=== PATIENT | male | born 1980 | race Caucasian/White ===

== ENCOUNTER 2022-07-12 10:06 | Outpatient (REF) | payer OTHER, SELFPAY ==
[2022-07-12 14:43] LABS: Cholesterol 244 mg/dL; Glucose Fasting 85 mg/dL (60-99); HDL Cholesterol 43 mg/dL; LDL Cholesterol Calculated 172 mg/dl; Triglycerides 147 mg/dL
== END 2022-07-12 10:07 | disposition home or self-care (01) ==
LOC: HO.WFDLDS 10:06
PROVIDERS: Visit Provider Family Medicine
DX: Z82.49 Family history of ischemic heart disease and other diseases of the circulatory system (principal)
CPT/HCPCS: 36415; 80061; 82947

== ENCOUNTER 2023-08-22 12:48 | Outpatient (REF) | payer OTHER, SELFPAY ==
--- NOTE | ~2023-08-22 | US_ITS ---
EXAMINATION: US THYROID CLINICAL INFORMATION: Iodine-deficiency related diffuse goiter. Rule out multinodular goiter. COMPARISON: None available. TECHNIQUE: Linear transducer rehman-scale and color Doppler examination with attention to the region of the thyroid. FINDINGS: SIZE: Measurements of the thyroid lobes and nodules are given in sagittal, anteroposterior and transverse dimensions respectively. Right Thyroid Lobe: 5.4 x 1.7 x 1.6 cm, volume 7.7 mL. Parenchyma: The gland echotexture is homogeneous. Thyroid vascularity is normal. Left Thyroid Lobe: 5.0 x 1.4 x 1.2 cm, volume 4.3 mL. Parenchyma: The gland echotexture is homogeneous. Thyroid vascularity is normal. Isthmus: 0.3 cm in maximum AP dimension. No focal thyroid nodule is seen. NODES: Left cervical 0.9 x 0.2 x 0.5 cm lymph node. US/US thyroid IMPRESSION: No suspicious thyroid nodules. Left cervical 0.9 x 0.2 x 0.5 cm lymph node. ACR TI-RADS RECOMMENDATION REFERENCE: Ultrasound-guided fine-needle aspiration, followup ultrasound, no further followup. * TR1 (0 point) and TR2 (2 points): No FNA or followup. * TR3 (3 points): FNA if more than or equal to 2.5 cm in maximum dimension, followup ultrasound in 1, 3 and 5 years if 1.5 to 2.4 cm in maximum dimension. * TR4 (4-6 points): FNA if more than or equal to 1.5 cm in maximum dimension, followup ultrasound in 1, 2, 3 and 5 years if 1 to 1.4 cm in maximum dimension. * TR5 (more than or equal to 7 points): FNA if more than or equal to 1 cm in maximum dimension, followup ultrasound every year for 5 years if 0.5 to 0.9 cm in maximum dimension. * TR3, TR4 or TR5 nodules that are below the size threshold for followup receive no followup.
== END 2023-08-22 12:49 | disposition home or self-care (01) ==
LOC: HO.US 12:48
PROVIDERS: PCP Family Medicine; Visit Provider Family Medicine
DX: E01.0 Iodine-deficiency related diffuse (endemic) goiter (principal)
CPT/HCPCS: 76536

== ENCOUNTER 2025-06-07 14:21 | Outpatient (AMB) | payer OTHER, SELFPAY ==
--- NOTE | 2025-06-07 14:27 | A.OFFPC_ITS ---
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 Accompanied by: Self / Same As Patient Allergies morphine Allergy (Severe, Verified 06/07/25 14:30) Hives Medication List - Last Reconciled 06/07/25 by SHERYL Kim No Known Home Meds Tobacco use date assessed: 06/07/25 Dental Screening Dental Screen Date: 06/07/25 Did you have a dental visit in the last 12 months?: Yes Did you have a dental problem in the last 6 months where you did not have access to dental care?: No Was dental information given to patient?: Patient has dentist HPI HPI Comments History of Present Illness Details 44 year old male without any significant past medical history presenting to the office today to establish care. He is a former patient of Dr. Bcekman, last seen for annual physical exam in November 2024. He reports he recently had candidiasis in the left axilla which resolved after fluconazole. His only other concern is itching in the left ear. No fevers or chills or otalgia. BMI 29.9, has not exercised recently but had been hiking and biking until 2 months ago. HLD- last LDL 179. Has been working on lifestyle Health Maintenance: Colonoscopy age 46 ROS: General: No fevers, malaise, unintentional weight loss HEENT: No blurred vision, diplopia. No sore throat, nasal congestion, rhinorrhea, sinus pain, ear pain Cardiovascular: No chest pain, palpitations, or leg edema Respiratory: No shortness of breath, wheezing, cough GI: No abdominal pain, nausea, vomiting, diarrhea, constipation, melena, hematochezia : No dysuria, hematuria, increased urinary frequency, decreased urinary output MSK: No myalgia, back pain Neuro: No headaches, weakness, paresthesias Skin: See HPI EXAM: Constitutional - Awake and Alert, No apparent distress Eyes - PERRL Cardiovascular - S1S2, RRR, No edema Respiratory - Normal lung expansion, Normal respiratory effort, No respiratory distress, CTA bilaterally Extremities - no calf tenderness bilaterally, no swelling Skin - Warm/Dry Neurological - Alert & oriented x3 Psychological - Appropriate affect PFSH Medical History HLD (hyperlipidemia) No pertinent past medical history Surgical History No pertinent past surgical history Family History Maternal Grandmother Diabetes Paternal Grandfather Diabetes Social History Housing: House Patient Tobacco Use Status: Never used Tobacco e-Cigarette/Vaping Use: Never Used service: No Current occupational status: employed Current occupation: [employer] Questionnaire AUDIT C Alcohol Use Questionnaire (AUDIT-C) 1. How often do you have a drink containing alcohol?: 4 or more times a week 2. How many drinks containing alcohol do you have on a typical day when you are drinking?: 1 or 2 3. How often do you have six or more drinks on one occasion?: Never Total Score: 4 Physical exam (Primary Care) Vital Signs: Last Vital Signs Temp 97.9 F 06/07/25 14:32 Pulse 80 06/07/25 14:32 Resp 18 06/07/25 14:32 BP 124/76 06/07/25 14:32 Pulse Ox 98 06/07/25 14:32 Oxygen Delivery Method Room Air 06/07/25 14:32 BMI result Body Mass Index 29.9 Tobacco/Smoking Status: Tobacco use Status Tobacco use date assessed 06/07/25 06/07/25 14:29 Patient Tobacco Use Status Never used Tobacco 06/07/25 14:34 e-Cigarette/Vaping Use Never Used 06/07/25 14:34 Coding Level of Care Code New Pt Level 4 (25270) Diagnoses HLD (hyperlipidemia) E78.5 Encounter to establish care Z76.89 Assessment & Plan Assessment & Plan (1) HLD (hyperlipidemia): Code(s): E78.5 - Hyperlipidemia, unspecified Category: Medical Plan: Lipid panel ordered. ASCVD risk score to be calculated pending results. Diet low in saturated fats and highly processed food. Resume exercise (2) Encounter to establish care: Code(s): Z76.89 - Persons encountering health services in other specified circumstances Category: Medical Plan: Screening labs ordered Colonoscopy to start at age 46 Healthy alcohol use. No other substances Continue healthy diet as above. Resume exercsie. Reviewed past medical, surgical, family, social history Plan Follow-up in 6 months for annual physical exam. Labs as below. Orders: Orders Lipid Panel Today E78.5 - Hyperlipidemia, unspecified, Z13.1 - Encounter for screening for diabetes mellitus Basic Metabolic Panel Today E78.5 - Hyperlipidemia, unspecified, Z13.1 - Encounter for screening for diabetes mellitus Hemoglobin A1c Today E78.5 - Hyperlipidemia, unspecified, Z13.1 - Encounter for screening for diabetes mellitus Liver Panel Today E78.5 - Hyperlipidemia, unspecified, Z13.1 - Encounter for screening for diabetes mellitus
[2025-06-07 14:32] VITALS: BP 124/76; PULSE 80; RESP 18; TEMP 36.6; O2SAT 98; BMI 29.9
== END 2025-06-07 14:53 | disposition home or self-care (01) ==
LOC: HO.HMCHD 14:22
PROVIDERS: PCP Family Medicine; Visit Provider Physician Assistant
DX: E78.5 Hyperlipidemia, unspecified (principal); Z76.89 Persons encountering health services in other specified circumstances